=== PATIENT | male | born 1995 | race Caucasian/White ===

== ENCOUNTER 2022-07-02 23:49 | Emergency (ER) | payer SELFPAY ==
[2022-07-02 23:52] VITALS: BP 134/86; PULSE 65; RESP 20; TEMP 36.8; O2SAT 97; BMI 25.7
--- NOTE | 2022-07-03 01:41 | XRR_ITS ---
PROCEDURE INFORMATION: Exam: XR Chest Exam date and time: 07/03/2022 3:23 AM Age: 27 years old Clinical indication: Pain; Cough; Chest pressure; Additional info: Chest pain TECHNIQUE: Imaging protocol: Radiologic exam of the chest. Views: 1 view. COMPARISON: CT chest abd pel w con* 07/15/2015 4:12 PM FINDINGS: Lungs: Normal lung volumes. No interstitial or airspace opacities. Pleural spaces: No pleural effusion. No pneumothorax. Heart/Mediastinum: Normal heart size. Normal mediastinal contour. Midline trachea. Bones/joints: No acute abnormalities. XR/XR chest 1V [id number] IMPRESSION: No chest radiographic evidence of acute cardiopulmonary disease.
[2022-07-03 02:34] VITALS: BP 133/84; PULSE 63; RESP 16; TEMP 36.8; O2SAT 97
--- NOTE | 2022-07-03 02:37 | PC.NURSE ---
Pt given update about long wait time. Pt stated his chest pain has subsided for the time being. Pt in NAD at this time.
[2022-07-03 03:01] LABS: Influenza A by IFA negative (Negative); Influenza B by IFA negative (Negative)
[2022-07-03 03:03] LABS: SARS Covid-2 Antigen negative (Negative)
[2022-07-03] MEDS: lidocaine 2% viscous 15 ML, aluminum-mag hydrox-simethicon 30 ML, sucralfate oral liq 1 GM PO (04:19)
[2022-07-03] MEDS: ketorolac 30 mg/mL INJ 15 MG IVP (04:19)
[2022-07-03 04:22] LABS: Basophils # 0.1 10^3/uL (0.0-0.1); Basophils % 0.6 %; Eosinophils # 0.4 10^3/uL (0.0-0.8); Eosinophils % 3.4 %; Hematocrit 47.8 % (42.0-52.0); Hemoglobin 16.9 g/dL (11.7-16.6); Lymphocytes # 3.5 10^3/uL (0.8-4.8); Lymphocytes % 27.9 %; Mean Corpuscular HGB Conc 35.4 g/dL (30.0-36.0); Mean Corpuscular Volume 84.8 fl (80-94); Mean Platelet Volume 10.8 fL (7.4-10.4); Monocytes # 0.9 10^3/uL (0.2-0.9); Monocytes % 7.2 %; Neutrophils # 7.43 10^3/uL (1.8-7.7); Neutrophils % 60.1 %; Nucleated Red Blood Cells % 0 %; Platelet Count 231 10^3/cmm (130-400); Red Blood Count 5.64 10^6/uL (4.1-5.3); Red Cell Distribution Width 11.9 % (12.1-15.1); White Blood Count 12.4 10^3/uL (4.0-10.0)
[2022-07-03] MEDS: ondansetron 2 mg/ML SDV 2 mL 4 MG IVP (04:27)
[2022-07-03 04:38] LABS: D Dimer 0.56 ug/mIFEU (0-0.59)
[2022-07-03 04:45] VITALS: BP 133/84; PULSE 67; RESP 18; O2SAT 93
[2022-07-03 04:47] LABS: Troponin(5th) Baseline 8 ng/L (0-15)
[2022-07-03 04:48] LABS: Alanine Aminotransferase 44 U/L (0-41); Albumin Level 4.7 g/dL (3.5-5.2); Alkaline Phosphatase 110 U/L (40-130); Aspartate Amino Transferase 26 U/L (0-40); Blood Urea Nitrogen 11 mg/dL (6-20); Calcium 9.4 mg/dL (8.5-10.5); Carbon Dioxide 20 mmol/L (22-29); Chloride 99 mmol/L (98-107); Glomerular Filtration Rate 162.9 mL/min (90-130); Glucose 103 mg/dL (65-115); Osmolality Calculated 282 mOsm/kg (285-295); Sodium 136 mmol/L (136-145); Total Bilirubin 0.7 mg/dL (0.15-1.2); Total Protein 7.7 g/dL (6.6-8.7)
[2022-07-03 05:03] VITALS: BP 133/77; PULSE 62; RESP 16; O2SAT 91
--- NOTE | 2022-07-03 05:08 | CTR_ITS ---
PROCEDURE INFORMATION: Exam: CTA Chest With Contrast Exam date and time: 07/03/2022 5:29 AM Age: 27 years old Clinical indication: Pain; Chest pressure; Additional info: Chest pain TECHNIQUE: Imaging protocol: Computed tomographic angiography of the chest with contrast. 3D rendering (Not supervised by radiologist): MIP and/or 3D reconstructed images were created by the technologist. Radiation optimization: All CT scans at this facility use at least one of these dose optimization techniques: automated exposure control; mA and/or kV adjustment per patient size (includes targeted exams where dose is matched to clinical indication); or iterative reconstruction. Contrast material: OMNI 350; Contrast volume: 100 ml; Contrast route: INTRAVENOUS (IV); COMPARISON: CT chest abd pel w con* 07/15/2015 4:12 PM RADIATION DOSE METRICS: Total DLP (mGy-cm): 378.71 FINDINGS: Pulmonary arteries: No CT evidence for segmental pulmonary emboli. The main pulmonary arteries and outflow trunk are unremarkable. Aorta: No thoracic aortic aneurysm. No thoracic aortic dissection. Trachea: The central airway is normal. Lungs: There are normal lung volumes. There is no CT evidence of interstitial lung disease. There is no consolidation. Pleural spaces: No pneumothorax. No pleural effusion. Heart: The heart size is within normal limits. The RV/LV ratio is normal at 1 (no CT evidence of RV strain). There is no pericardial effusion. No coronary arterial atherosclerotic vascular calcifications. Lymph nodes: No enlarged lymph nodes. Bones/joints: No acute osseous abnormalities. Soft tissues: Unremarkable. CT/CT angio chest PE protcl [id number] IMPRESSION: 1. No CTA evidence of pulmonary embolism, thoracic aortic aneurysm or thoracic aortic dissection. 2. Unremarkable CT appearance of the lungs.
[2022-07-03] MEDS: iohexol 350 mg/mL 500 mL Btl (per mL) IV (05:17)
[2022-07-03 05:21] LABS: Add Urine Culture? No; Add Urine Microscopic? YES; Bacteria Urine TRACE /hpf; Bilirubin Urine 1+ (Negative); Blood Urine Neg (Negative); Glucose Urine UA Norm (Normal); Ketones Urine 3+ (Negative); Leukocyte Esterase Urine 1+ (Negative); Nitrate Urine Negative (Negative); Protein Urine Trace (Negative); RBC Urine 0-4 /hpf (0-2); Squamous Epithelial Cell Urine 0-4 /hpf (0-5); Urine Appearance Clear (CLEAR); Urine Color Yellow (Yellow); Urobilinogen Urine 1 mg/dL (Negative); pH Urine 5 (5-7)
[2022-07-03 05:29] LABS: Amphetamines Screen Urine Negative (Negative); Barbiturates Screen Urine Negative (Negative); Benzodiazepines Screen Urine Negative (Negative); Cocaine Screen Urine Negative (Negative); Opiate Screen Urine Negative (Negative); PCP Screen Urine Negative (Negative); THC Screen Urine Negative (Negative)
[2022-07-03 05:30] LABS: Slide Review Slide Review Perform
[2022-07-03 05:45] VITALS: BP 139/75; PULSE 67; RESP 18; O2SAT 93
--- NOTE | 2022-07-03 05:52 | ED_ITS ---
HPI - Chest Pain General: Chief Complaint: Chest Pain Stated Complaint: cp Time Seen by Provider: 07/03/22 04:07 History of Present Illness: 27-year-old male who has been on a cruise for a week. 3 days ago he began to get sick. He has had cough and congestion and now has substernal and left-sided chest discomfort. It is somewhat sharp. He vomited once tonight. He has not had much to eat in the past couple of days. No significant diarrhea. His girlfriend is sure he has had a fever, but she did not have a thermometer on the cruise ship. complaint: chest pain Onset (ago): hour(s) Timing of current episode: constant Prior episodes: No Onset: during rest Pain location: substernal and left chest Pain radiation: none Quality: tightness, heaviness and sharp Relieving factors: nothing Exacerbating factors: exertion and inspiration Associated symptoms: Reports diaphoresis, dyspnea, nausea and vomiting; Deny abdominal pain, fever(s) or leg edema Treatment prior to arrival: none Review of Systems Const: Reports: diaphoresis; Denies: fever(s) ENMT: Denies: throat pain Card: Reports: chest pain Resp: Reports: dyspnea GI: Reports: nausea and vomiting; Denies: abdominal pain Neuro: Denies: headache(s) Physical Exam Const: GENERAL APPEARANCE: cooperative and ill appearing (Mildly); not frail appearing HENMT: COMMON NORMALS: normocephalic and atraumatic HEAD & SCALP: normocephalic and atraumatic FACE & SINUS: normal facial exam and face symmetric Eye: COMMON NORMALS: Equal, round and reactive pupils present and EOMs intact bilaterally PUPIL: Yes Equal, round and reactive pupils present Neck/C-Spine: GENERAL: Yes trachea midline Chest: CHEST: Yes Symmetrical chest wall rise Resp: EFFORT & INSPECTION: Yes tachypneic and Yes uses accessory muscles Cardio: COMMON NORMALS: regular rate and regular rhythm RATE: regular rate RHYTHM: regular rhythm GI: COMMON NORMALS: Normal to inspection, nondistended, normoactive bowel sounds present, Soft to palpation and non-tender PALPATION: Yes Soft to palpation Extremity: COMMON NORMALS: normal to inspection Neuro: [place] COMA SCALE: document GCS findings [place] coma scale eye opening: Spontaneous [place] coma scale verbal response: Orientated [place] coma scale motor response: Obey commands [place] coma scale total score: 15 Course Vital Signs: Vital signs: Vital Signs Temperature 98.3 F 07/03/22 02:34 Pulse Rate 70 07/03/22 06:38 Respiratory Rate 16 07/03/22 06:38 Blood Pressure 134/78 07/03/22 06:38 Pulse Oximetry 90 07/03/22 06:38 Oxygen Delivery Me thod 07/03/22 02:34 MDM - Chest Pain Medical Decision Making 27-year-old male patient with shortness of breath and chest discomfort on the left side. He has been sick on a cruise ship. He is afebrile here. White blood cell count is 12. Hemoglobin is 17. Bicarbonate is 20. Other laboratories unremarkable. His EKG shows a sinus rhythm with normal axis and no ST wave changes. He is given fluid bolus. it was noted that at times he was hypoxic. Because of this CTA was ordered, and is negative. This is likely due to sleep apnea, as the patient has normal saturations while awake. Symptoms are somewhat relieved to share their kills with GI cocktail. CTA did not show any evidence of a softgel rupture. He'll be treated for GERD as well as bronchitis. He knows to return for any worsening symptoms. Lab Data 07/03/22 04:13 07/03/22 04:13 Radiology Impressions Chest X-Ray 07/03/22 01:41 IMPRESSION: No chest radiographic evidence of acute cardiopulmonary disease. Chest CTA 07/03/22 05:08 IMPRESSION: 1. No CTA evidence of pulmonary embolism, thoracic aortic aneurysm or thoracic aortic dissection. 2. Unremarkable CT appearance of the lungs. Laboratory Results WBC 12.4 10^3/uL (4.0-10.0) H 07/03/22 04:13 RBC 5.64 10^6/uL (4.1-5.3) H 07/03/22 04:13 Hgb 16.9 g/dL (11.7-16.6) H 07/03/22 04:13 Hct 47.8 % (42.0-52.0) 07/03/22 04:13 MCV 84.8 fl (80-94) 07/03/22 04:13 MCH 30.0 pg (28.0-34.0) 07/03/22 04:13 MCHC 35.4 g/dL (30.0-36.0) 07/03/22 04:13 RDW 11.9 % (12.1-15.1) L 07/03/22 04:13 Plt Count 231 10^3/cmm (130-400) 07/03/22 04:13 MPV 10.8 fL (7.4-10.4) H 07/03/22 04:13 Neut % (Auto) 60.1 % 07/03/22 04:13 Lymph % (Auto) 27.9 % 07/03/22 04:13 [place] % (Auto) 7.2 % 07/03/22 04:13 Eos % (Auto) 3.4 % 07/03/22 04:13 Baso % (Auto) 0.6 % 07/03/22 04:13 Neut # (Auto) 7.43 10^3/uL (1.8-7.7) 07/03/22 04:13 Lymph # (Auto) 3.5 10^3/uL (0.8-4.8) 07/03/22 04:13 [place] # (Auto) 0.9 10^3/uL (0.2-0.9) 07/03/22 04:13 Eos # (Auto) 0.4 10^3/uL (0.0-0.8) 07/03/22 04:13 Baso # (Auto) 0.1 10^3/uL (0.0-0.1) 07/03/22 04:13 Nucleated RBC % (auto) 0 % 07/03/22 04:13 Nucleated RBCs # 0.0 /100WBC 07/03/22 04:13 D-Dimer 0.56 ug/mIFEU (0-0.59) 07/03/22 04:13 Sodium 136 mmol/L (136-145) 07/03/22 04:13 Potassium 4.0 mmol/L (3.5-5.1) 07/03/22 04:13 Chloride 99 mmol/L (98-107) 07/03/22 04:13 Carbon Dioxide 20 mmol/L (22-29) L 07/03/22 04:13 Anion Gap 21.0 (5-19) H 07/03/22 04:13 BUN 11 mg/dL (6-20) 07/03/22 04:13 Creatinine 0.6 mg/dL (0.7-1.2) L 07/03/22 04:13 GFR Calculation 162.9 mL/min (90-130) H 07/03/22 04:13 Glucose 103 mg/dL (65-115) 07/03/22 04:13 Calculated Osmolality 282 mOsm/kg (285-295) L 07/03/22 04:13 Calcium 9.4 mg/dL (8.5-10.5) 07/03/22 04:13 Total Bilirubin 0.7 mg/dL (0.15-1.2) 07/03/22 04:13 AST 26 U/L (0-40) 07/03/22 04:13 ALT 44 U/L (0-41) H 07/03/22 04:13 Alkaline Phosphatase 110 U/L (40-130) 07/03/22 04:13 Troponin T Baseline 8 ng/L (0-15) 07/03/22 04:13 Total Protein 7.7 g/dL (6.6-8.7) 07/03/22 04:13 Albumin 4.7 g/dL (3.5-5.2) 07/03/22 04:13 Globulin 3.0 g/dL (1.3-4.6) 07/03/22 04:13 Urine Color Yellow (Yellow) 07/03/22 04:55 Urine Appearance Clear (CLEAR) 07/03/22 04:55 Urine pH 5 (5-7) 07/03/22 04:55 Ur Specific [place] 1.020 (1.005-1.030) 07/03/22 04:55 Urine Protein Trace (Negative) 07/03/22 04:55 Urine Glucose (UA) Norm (Normal) 07/03/22 04:55 Urine Ketones 3+ (Negative) H 07/03/22 04:55 Urine Blood Neg (Negative) 07/03/22 04:55 Urine Nitrate Negative (Negative) 07/03/22 04:55 Urine Bilirubin 1+ (Negative) H 07/03/22 04:55 Urine Urobilinogen 1 mg/dL (Negative) H 07/03/22 04:55 Ur Leukocyte Esterase 1+ (Negative) H 07/03/22 04:55 Urine RBC 0-4 /hpf (0-2) H 07/03/22 04:55 Urine WBC 5-10 /hpf (0-5) H 07/03/22 04:55 Ur Squamous Epith Cells 0-4 /hpf (0-5) H 07/03/22 04:55 Amorphous Sediment Not Reportable 07/03/22 04:55 Urine Bacteria Trace /hpf (NONE) 07/03/22 04:55 Urine Opiates Screen Negative ng/mL (Negative) 07/03/22 04:55 Ur Barbiturates Screen Negative ng/mL (Negative) 07/03/22 04:55 Ur Phencyclidine Scrn Negative ng/mL (Negative) 07/03/22 04:55 Ur Amphetamines Screen Negative ng/mL (Negative) 07/03/22 04:55 U Benzodiazepines Scrn Negative ng/mL (Negative) 07/03/22 04:55 Urine Cocaine Screen Negative ng/mL (Negative) 07/03/22 04:55 U Marijuana (THC) Screen Negative ng/mL (Negative) 07/03/22 04:55 Influenza Type A Ag negative (Negative) 07/03/22 02:36 Influenza Type B Ag negative (Negative) 07/03/22 02:36 SARS-CoV-2 Ag (Rapid) negative (Negative) 07/03/22 02:36 Discharge Plan Discharge Patient Disposition: Home Clinical Impression: Chest pain, Chest pain due to GERD, Bronchitis Condition: Stable Prescriptions: New Prevacid 30 mg capsule,delayed release(DR/EC) 30 mg PO DAILY Qty: 30 0RF Medrol ([place]) 4 mg tablets,dose pack See Rx Instructions .ROUTE .COMPLEX Qty: 21 0RF Rx Instructions: orally per package directions albuterol sulfate 90 mcg/actuation HFA aerosol inhaler 2 inh INHALATION Q4H PRN (Reason: shortness of breath or wheezing) Qty: 6.7 1RF Carafate 1 gram tablet 1 g PO BID 28 Days Qty: 56 0RF doxycycline hyclate 100 mg tablet 100 mg PO BID 7 Days Qty: 14 0RF Discharge Orders: Discharge ED (Routine); Ordered 07/03/22 Ordered By: Cristobal House Patient Instructions: Chest Pain (ED), Acute Bronchitis (ED), GERD (Gastroesophageal Reflux Disease) (ED) Activity Restrictions/Additional Instructions: Return for worsening pain or shortness of breath despite treatment, fever greater than 100 despite 2-3 doses of antibiotics, vomiting liquids or medications, any other concerning symptoms. Medications as directed. Coding Level of Care Code ED Director Industrial Relations for Chg Fwd Exam Comprehensive
[2022-07-03] MEDS: sodium chloride 0.9% 1,000 ML 999 ML IV (05:57)
[2022-07-03 06:00] VITALS: BP 132/78; PULSE 65; RESP 16; O2SAT 93
[2022-07-03 06:38] VITALS: BP 134/78; PULSE 70; RESP 16; O2SAT 90
== END 2022-07-03 06:55 | disposition home or self-care (01) ==
PROVIDERS: Physician Assistant; Emergency Provider Emergency Medicine
DX: K21.9 Gastro-esophageal reflux disease without esophagitis (principal); J40 Bronchitis, not specified as acute or chronic; Z20.822 Contact with and (suspected) exposure to COVID-19
CPT/HCPCS: 71045; 71275; 80053; 80306; 81001; 84484; 85025; 85378; 87426; 87804; 96361; 96374; 96375; 99285; J1885; J2405; J2930; J7030; Q9967